=== PATIENT | female | born 1985 ===

== ENCOUNTER 2021-02-12 16:11 | Outpatient (CLI) | payer MEDICAID, SELFPAY ==
--- NOTE | 2021-02-12 15:09 | DI.US_ITS ---
APPROVED REPORT EXAM: Comprehensive 2D, Doppler, and color-flow Echocardiogram Patient Location: Out-Patient [employer] Machine: Camila Morales RDCS (AE) Indications: Atypical Chest pain Other Information Study Quality: Adequate Conclusion Left Ventricle : The left ventricle is normal size. The left ventricular systolic function is normal. The left ventricular ejection fraction is within the normal range. There is normal left ventricular wall thickness. There is normal LV segmental wall motion. The left ventricular diastolic function is normal. LVEF is 60%. Right Ventricle : The right ventricle is normal size. The right ventricular systolic function is norm al. Valves: There are no hemodynamically significant valvular lesions. Great Vessels : The aortic root is normal in size. The ascending aorta is borderline dilated. Aortic arch is normal in caliber. IVC is normal in size and collapses >50% with inspiration. Please see remainder of study for further details. Wall motion Left Ventricle The left ventricle is normal size. The left ventricular systolic function is normal. The left ventric ular ejection fraction is within the normal range. There is normal left ventricular wall thickness. T here is normal LV segmental wall motion. The left ventricular diastolic function is normal. There is no ventricular septal defect visualized. LVEF is 60%. Right Ventricle The right ventricle is normal size. The right ventricular systolic function is normal. Atria The left atrium size is normal. The right atrium size is normal. The interatrial septum is intact wit h no evidence for an atrial septal defect. Aortic Valve The aortic valve is normal in structure. Aortic valve is trileaflet. There is no aortic valvular sten osis. No aortic regurgitation is present. Mitral Valve The mitral valve is normal in structure. No evidence of mitral valve stenosis. Trace mitral regurgita tion. Tricuspid Valve The tricuspid valve is normal in structure. There is no tricuspid valve stenosis. Trace tricuspid reg urgitation. Unable to assess PA pressure. Pulmonic Valve The pulmonary valve is normal in structure. There is no pulmonic valvular stenosis. Trace pulmonic re gurgitation. Great Vessels The aortic root is normal in size. The ascending aorta is borderline dilated. Aortic arch is normal i n caliber. IVC is normal in size and collapses >50% with inspiration. Pericardium There is no pericardial effusion. 2D Dimensions IVSD d PLAX 1.01 cm F: 0.6-1.0 LV Vol A2C d MOD 108.2 mL LVPW d PLAX 1.01 cm F: 0.6 - 1.0 LV Vol A4C d MOD 139.7 mL LVID d PLAX 4.08 cm F: 3.8 - 5.2 LA vol/ BSA A2C s A-L 24.1 mL/m2 LVDs 2.80 cm F: 2.2 - 3.5 LA vol/ BSA A4C s A-L 26.7 mL/m2 Ao Root d 2.94 cm F: 2.7 - 3.3 LA Vol/ BSA Biplane s A-L 27.0 mL/m2 RA Area A4C 12.87 cm2 LA Area A4C s MOD 18.53 cm2 RA Vol/ BSA A4C s A-L 17.6 mL/m2 LA Area A2C s MOD 16.59 cm2 Ao Asc Diam d 3.20 cm F: 2.3 - 3.1 LV EF A4C MOD 60.0 % LV EF Teichholz 58.6 % LV EF A2C MOD 60.3 % LVEF (Hood's) 59.76 % F: 54 - 74 LV EF Biplane MOD 59.8 % LV Volume 92.38 mL F: 46 - 106 SV 73.78 mL LV Volume Index 45.96 mL/m2 F: 29 - 61 SV Index 36.64 mL/m2 LV Vol Biplane MOD 123.5 mL FS 30.60 % M-Mode TAPSE 2.41 cm (M/F) >1.7 LV Diastology MV E' medial 0.086 (>0.07 m/s) E/A Ratio 1.2 LV E/e MED 8.75 (<14) MV E Vmax 0.75 (0.4-1.3 m/s) MV E' lateral 0.112 (>0.1 m/s) MV A Vmax 0.65 (0.4-1.3 m/s) LV E/e LAT 6.65 (<14) MV E/A Ratio 1.08 MV E/E' medial 8.75 MV E/E' lateral 6.70 Aortic Valve LVOT Area 2.97 cm2 AoV Area Vmax 2.63 cm2 LVOT Vmax 1.29 m/s AoV Area/ BSA (Vmax) 1.31 cm2/m2 LVOT Mean Talib. 0.76 m/s KRISTOPHER Mean Talib. 2.40 cm2 LVOT Peak Grad 6.7 mmHg KRISTOPHER Mean Talib. Index 1.19 cm2/m2 LVOT Mean Grad 2.9 mmHg LVOT VTI 0.237 m LVOT Diam s 1.90 cm AoV Vmax 1.46 m/s Velocity Ratio 0.88 AoV Mean Talib. 0.94 m/s AoV Peak Grad 8.5 mmHg LVOT SV 70.51 mL AoV Mean Grad 4.0 mmHg AoV VTI 0.250 m AoV Area VTI 2.83 cm2 AoV Area/ BSA (VTI) 1.40 cm/m2 Mitral Valve MV DT 224 (160-240 msec) MV PHT 65 msec MV Area PHT 3.39 cm2 MV VTI 0.223 m MV VTI Annulus 0.217 m MV Area VTI 3.08 (4.0-6.0 cm2) Pulmonary Valve PV Vmax 0.95 (0.5-1.5 m/s) RVOT Peak Gr. 2.36 mmHg PV Peak Grad 3.6 mmHg RVOT Mean Gr. 1.10 mmHg PV Mean Grad 2.0 mmHg RVOT VTI 0.141 m PV VTI 0.181 m RVOT Vmax 0.77 m/s
== END 2021-02-12 16:31 ==
PROVIDERS: PCP Family Medicine; Visit Provider Family Medicine
DX: R07.89 Other chest pain (principal)
CPT/HCPCS: 93306